=== PATIENT | female | born 1975 | race Two or more races ===

== ENCOUNTER 2024-02-10 22:25 | Emergency (ER) | payer OTHER ==
[~2024-02-10] VITALS: Ht 162.6 cm; Wt 68.0 kg
[2024-02-11] MEDS ORDERED: CYCL10TA9 PO (00:03)
[2024-02-11] MEDS ORDERED: CYCLOBENZAPRINE 10 MG TABLET ONE (00:26)
[2024-02-11] MEDS: CYCLOBENZAPRINE 10 MG TABLET PO ONE (00:29)
[2024-02-11 00:31] VITALS: BP 120/78; TEMP 97.5; O2SAT 98
== END 2024-02-11 00:31 | disposition home or self-care (01) ==
LOC: ER 22:55
DX: M25.561 Pain in right knee (principal); M79.651 Pain in right thigh
CPT/HCPCS: 73564-TC